=== PATIENT | female | born 1975 | race Hispanic/Latino ===

== ENCOUNTER 2024-02-17 15:38 | Emergency (ER) | payer OTHER ==
[~2024-02-17] VITALS: Ht 152.4 cm; Wt 90.7 kg
[2024-02-17 16:27] VITALS: BP 126/76; PULSE 67; RESP 20
[2024-02-17] MEDS: FAMOTIDINE 20MG TAB PO ONE (17:03)
[2024-02-17] MEDS: IBUPROFEN 600 MG TABLET PO ONE (17:03)
[2024-02-17] MEDS: ONDANSETRON ODT 4MG TAB SL ONE (17:03)
[2024-02-17] MEDS: PREDNISONE 20 MG TABLET PO ONE (17:03)
== END 2024-02-17 18:36 | disposition home or self-care (01) ==
LOC: EDH 15:38
DX: S40.012A Contusion of left shoulder, initial encounter (principal); V89.2XXA Person injured in unspecified motor-vehicle accident, traffic, initial encounter; Y93.I9 Activity, other involving external motion; Y92.488 Other paved roadways as the place of occurrence of the external cause; Y99.8 Other external cause status; S80.12XA Contusion of left lower leg, initial encounter
CPT/HCPCS: 71045; 72170; 73060; 73090; 73552